=== PATIENT | male | born 1975 | race Caucasian/White ===

== ENCOUNTER → 2017-04-17 | Outpatient (CLI) | payer BC ==
--- NOTE | 2017-04-17 11:37 | EST ---
DATE OF SERVICE: 04/17/2017 AGE: 41Y SEX: M HT: 5'10 WT: 170 lbs. Protocol Jose: X Other: Stress Stage: 5 Dur. of Exercise: 12:30 *Heart Rate Blood Pressure *Rest: 75 Rest: 136/85 * *Max. Achieved: 160 Maximum BP: 201/81 85% PMHR: 150 100% PMHR: 177 *METS: 12.9 INDICATIONS: Hypertension. MEDICATIONS: Lisinopril. Baseline EKG shows sinus rhythm, normal axis, normal intervals. Patient exercised on Jose protocol for a total of 12-1/2 minutes achieving 13 METs, 85% of predicted maximal heart rate without chest pain or diagnostic ST segment depression. CONCLUSION: 1. Excellent exercise tolerance. 2. Negative stress test by EKG criteria.
--- NOTE | 2017-04-18 09:57 | ECHOF ---
Referral Reason:I25.10 Atherosclerotic heart disease MEASUREMENTS -------- HEIGHT: 152.4 cm WEIGHT: 77.1 kg BP: IVSd: 1.1 cm (0.6 - 1.1) LVIDd: 4.7 cm (3.9 - 5.3) LVPWd: 1.0 cm (0.6 - 1.1) IVSs: 1.7 cm LVIDs: 2.3 cm LVPWs: 1.7 cm Ao Diam: 3.2 cm (2.0 - 3.7) AV Cusp: 2.3 cm (1.5 - 2.6) LA Diam: 2.8 cm (2.7 - 3.8) MV EXCURSION: 14.230 mm (> 18.000) MV EF SLOPE: 93 mm/s (70 - 150) EPSS: 0.5 cm MV E Brian: 0.78 m/s MV DecT: 146 ms MV A Brian: 0.82 m/s MV E/A Ratio: 0.95 RAP: 5.00 mmHg RVSP: 26.56 mmHg FINDINGS -------- Sinus rhythm. This was a technically good study. Left ventricular wall thickness is normal. Overall left ventricular systolic function is normal with, an EF between 55 - 60 %. The right ventricle is normal in size and function. The left atrium is normal in size. The right atrium is normal in size. The aortic valve is trileaflet, and appears structurally normal. No aortic stenosis or regurgitation. Mild mitral regurgitation is present. Trace tricuspid regurgitation present. The right ventricular systolic pressure, as measured by Doppler, is 26.56mmHg. Pulmonic valve appears structurally normal. The aortic root size is normal. The pericardium is normal. CONCLUSIONS -------- 1. Sinus rhythm. 2. Trace tricuspid regurgitation present. 3. The right ventricular systolic pressure, as measured by Doppler, is 26.56mmHg. 4. Pulmonic valve appears structurally normal. 5. The aortic root size is normal. 6. The pericardium is normal. 7. This was a technically good study. 8. Left ventricular wall thickness is normal. 9. Overall left ventricular systolic function is normal with, an EF between 55 - 60 %. 10. The right ventricle is normal in size and function. 11. The left atrium is normal in size. 12. The right atrium is normal in size. 13. The aortic valve is trileaflet, and appears structurally normal. No aortic stenosis or regurgitation. 14. Mild mitral regurgitation is present. HALL PORTER: Yas Reich RDCS
== END | disposition home or self-care (01) ==
LOC: RADNMMAIN 10:40
PROVIDERS: ATTEND Internal Medicine
DX: I34.0 Nonrheumatic mitral (valve) insufficiency (principal); I10 Essential (primary) hypertension
CPT/HCPCS: 93017; 93306

== ENCOUNTER 2020-11-21 12:45 | Emergency (ER) | payer BC ==
[2020-11-21 12:55] VITALS: BP 143/96; PULSE 77; RESP 16; TEMP 98.3
--- NOTE | 2020-11-21 13:49 | ED ---
General Adult HPI - General Chief complaint: Extremity Injury, Lower Stated complaint: lt foot crushing injury Time Seen by Provider: 11/21/20 13:10 Source: patient, RN notes reviewed Mode of arrival: wheelchair Limitations: no limitations - History of Present Illness Initial comments: 45-year-old male with a past medical history of hypertension presents to the emergency room for a chief complaint of left foot injury. Patient states that he was putting a trailer on a hitch when it slipped off and fell onto his left 3 first toes. Patient states he is able to move them but it is painful. States they were initially swollen and bruised but actually seemed to be appearing better at this time. Patient is a [place] prior to arrival he does not anything else for pain. Patient denies any other injuries. Denies any lacerations.Patient has no other complaints at this time including shortness of breath, chest pain, abdominal pain, nausea or vomiting, headache, or visual changes. - Related Data Allergies Allergy/AdvReac Type Severity Reaction Status Date / Time No Known Allergies Allergy Verified 11/21/20 12:55 Review of Systems ROS Statement: Those systems with pertinent positive or pertinent negative responses have been documented in the HPI. ROS Other: All systems not noted in ROS Statement are negative. Past Medical History Past Medical History: Hyperlipidemia History of Any Multi-Drug Resistant Organisms: None Reported Past Surgical History: No Surgical Hx Reported Past Psychological History: No Psychological Hx Reported Smoking Status: Former smoker Past Alcohol Use History: Occasional Past Drug Use History: None Reported General Exam - General Exam Comments Initial Comments: Left foot: DP pulse 2+, sensation intact. Patient has slight erythema and edema to the first second and third digits. Compartments soft in the left foot. He is able to move the toes however range of motion is limited secondary to pain. No lacerations or open wounds. He does have significant tenderness to the first second and third digits. Limitations: no limitations General appearance: alert Head exam: Present: atraumatic Eye exam: Present: normal appearance, PERRL, EOMI. Absent: scleral icterus ENT exam: Present: normal exam, mucous membranes moist Neck exam: Present: normal inspection, full ROM. Absent: tenderness Respiratory exam: Present: normal lung sounds bilaterally. Absent: respiratory distress, wheezes Cardiovascular Exam: Present: regular rate, normal rhythm, normal heart sounds GI/Abdominal exam: Present: soft, normal bowel sounds. Absent: distended, tenderness, guarding, rebound, rigid Course Vital Signs 11/21/20 12:52 Temperature 98.3 F Pulse Rate 77 Respiratory 16 Rate Blood Pressure 143/96 O2 Sat by Pulse 97 Oximetry Medical Decision Making - Medical Decision Making X-ray of the left foot did show a nondisplaced intra-articular fracture of the first digit of the left foot. Patient was placed in a fracture shoe for comfort. Gave orthopedic follow-up. Patient has pain medication at home. Discussed rice therapy. Disposition Clinical Impression: Fracture of great toe, left, closed Disposition: HOME SELF-CARE Condition: Good Instructions (If sedation given, give patient instructions): Toe Fracture (ED), R.I.C.E. Treatment (ED) Additional Instructions: Take Motrin and Tylenol for pain. Rest ice and elevate the foot. Use fracture shoe for comfort. Follow up with primary care or orthopedics. Return to the emergency room for any worsening symptoms. Is patient prescribed a controlled substance at d/c from ED?: No Referrals: Seema Barnard MD [Primary Care Provider] - 1-2 days Sancho Rosales MD [STAFF PHYSICIAN] - 1-2 days Time of Disposition: 14:28
--- NOTE | 2020-11-21 13:53 | XR ---
Left foot HISTORY: Pain, trauma 3 views of the left foot Bone mineralization, joint spaces and alignment are maintained. At the level of the lateral aspect of the proximal portion of the distal values of the first digit there is a lucency present extending in to the interphalangeal joint. No dislocation. IMPRESSION: Correlate for nondisplaced intra-articular fracture of the first digit of the left foot
== END 2020-11-21 14:46 | disposition home or self-care (01) ==
LOC: EC 12:45
DX: S92.405A Nondisplaced unspecified fracture of left great toe, initial encounter for closed fracture (principal); Z87.891 Personal history of nicotine dependence; W20.8XXA Other cause of strike by thrown, projected or falling object, initial encounter; Y93.89 Activity, other specified; Y92.89 Other specified places as the place of occurrence of the external cause
CPT/HCPCS: 99283

== ENCOUNTER → 2023-10-20 | Outpatient (CLI) | payer BC ==
--- NOTE | 2023-10-20 14:45 | CT ---
EXAMINATION TYPE: CT sinus wo con DATE OF EXAM: 10/20/2023 COMPARISON: None HISTORY: chronic sinusitis, infections CT DLP: 503 mGycm. Automated Exposure Control for Dose Reduction was Utilized. TECHNIQUE: CT scan of the sinuses is performed without contrast, axial images are obtained, coronal r eformatted images are also reviewed. FINDINGS: There is mild mucosal thickening in scattered mucous retention cysts or polyps in the frontal, ethmoi d and maxillary sinuses. There are no air-fluid levels to suggest acute sinusitis. The ostiomeatal complexes are patent bilaterally. There is no nasal polyp or inflammation. The osseous celestin of paranasal sinuses are intact. The intraorbital contents appear normal and symmetric. The mastoid air cells and middle ear cavities are well aerated. IMPRESSION: Mild scattered chronic inflammatory changes in the paranasal sinuses as described above. There is no evidence of acute sinusitis.
== END | disposition home or self-care (01) ==
LOC: RADCTMAIN 12:26
PROVIDERS: ATTEND Otolaryngology
DX: J01.91 Acute recurrent sinusitis, unspecified (principal); J34.89 Other specified disorders of nose and nasal sinuses
CPT/HCPCS: 70486

== ENCOUNTER → 2024-09-25 | Day surgery (SDC) | payer BC ==
[~2024-09-25] MED LIST: LACTATED RINGERS 1,000 ML IV SCH; LIDOCAINE 1% (10MG/ML) FOR IV START INTRADERMA PRN; LIDOCAINE 1% INJ 10MG/ML (20 ML MDV) ONE; PROPOFOL 10 MG/ML 20 ML VIAL IV ONE
[2024-09-25 10:53] VITALS: TEMP 97.9
[2024-09-25] MEDS: IV FLUID CONTINUATION 1,000 ML IV ONE (10:58)
--- NOTE | 2024-09-25 11:55 | P.PCN ---
Date of Procedure: 09/25/24 Procedure(s) Performed: BRIEF HISTORY: Patient is a 49-year-old pleasant white male scheduled for an elective colonoscopy as a part of screening for colon cancer. PROCEDURE PERFORMED: Colonoscopy with biopsy. PREOPERATIVE DIAGNOSIS: Screening for colon cancer. IV sedation per Anesthesia. PROCEDURE: After informed consent was obtained, the patient, was brought into the endoscopy unit. IV sedation was administered by Anesthesia under continuous monitoring. Digital rectal examination was normal. Initially the Olympus CF-160 flexible video colonoscope was then inserted in the rectum, gradually advanced into the cecum without any difficulty. Careful examination was performed as the scope was gradually being withdrawn. Ileocecal valve and the appendiceal orifice were visualized and appeared normal. Prep was excellent. Mucosa of the cecum, appeared normal. Descending colon there was a 3 mm polyp that was removed by cold biopsy. In the descending colon there was another 3 mm polyp removed by cold biopsy. Rest of the ascending colon, transverse colon, descending colon, sigmoid colon, and rectum appeared normal. Retroflexion was performed in the rectum and no lesions were seen. The patient tolerated the procedure well. IMPRESSION: 3 mm ascending colon polyp status post cold biopsy 3 mm descending colon polyp status post cold biopsy Rest of the colon appeared normal RECOMMENDATIONS: Findings of this examination were discussed with the patient as well as his family. He was advised to follow-up with the biopsy results. If the biopsy reveals adenoma he can have repeat colonoscopy in 5 years.
[2024-09-25 12:14] VITALS: BP 131/89; PULSE 60; RESP 14
== END ==
LOC: ORWHC2ENDO 10:10
PROVIDERS: ATTEND Internal Medicine Gastroenterology
DX: Z12.11 Encounter for screening for malignant neoplasm of colon (principal); D12.4 Benign neoplasm of descending colon; I10 Essential (primary) hypertension; E78.5 Hyperlipidemia, unspecified; Z87.891 Personal history of nicotine dependence
CPT/HCPCS: 88305; 45380; J2003; J2704